=== PATIENT | female | born 1960 | race Caucasian/White ===

== ENCOUNTER → 2016-09-09 | Outpatient (CLI) | payer OTHER | LOC: MAMO 07-25 07:40 | DX: Z12.31 Encounter for screening mammogram for malignant neoplasm of breast (principal); Z90.710 Acquired absence of both cervix and uterus | CPT/HCPCS: G0202 ==

== ENCOUNTER → 2016-09-19 | Outpatient (CLI) | payer OTHER | LOC: MAMO 09:20 | DX: N64.89 Other specified disorders of breast (principal) | CPT/HCPCS: G0206 ==

== ENCOUNTER → 2020-09-08 | Outpatient (CLI) | payer BC | LOC: MAMO 08-15 08:30 | DX: Z12.31 Encounter for screening mammogram for malignant neoplasm of breast (principal) | CPT/HCPCS: 77063; 77067 ==